=== PATIENT | female | born 1930 | race Hispanic/Latino ===

== ENCOUNTER 2019-01-26 20:44 | Observation (INO) | payer MEDICARE ==
--- NOTE | 2019-01-26 21:00 | Emergency Department Report ---
Blank Doc - Documentation Documentation: This is a 88-year-old female that presents with intermittent headaches and high blood pressure. This initial assessment/diagnostic orders/clinical plan/treatment(s) is/are subject to change based on patient's health status, clinical progression and re- assessment by fellow clinical providers in the ED. Further treatment and workup at subsequent clinical providers discretion. Patient/guardians urged not to elope from the ED as their condition may be serious if not clinically assessed and managed. Initial orders include: 1- Patient sent to [facility] for further evaluation and treatment 2- labs 3- UA
[2019-01-26 21:21] LABS: Basophils # (Auto) 0.1 K/mm3 (0.0-0.1); Basophils % (Auto) 1.5 % (0.0-1.8); Eosinophils # (Auto) 0.1 K/mm3 (0.0-0.4); Hematocrit 37.6 % (30.3-42.9); Hemoglobin 12.9 gm/dl (10.1-14.3); Lymphocytes # (Auto) 2.3 K/mm3 (1.2-5.4); Lymphocytes % (Auto) 27.4 % (13.4-35.0); Mean Corpuscular HGB Conc 34 % (30-34); Mean Corpuscular Volume 91 fl (79-97); Monocytes # (Auto) 0.8 K/mm3 (0.0-0.8); Monocytes % (Auto) 9.6 % (0.0-7.3); Platelet Count 256 K/mm3 (140-440); Red Blood Count 4.11 M/mm3 (3.65-5.03); Red Cell Distribution Width 13.9 % (13.2-15.2)
[2019-01-26 21:44] LABS: Alanine Aminotransferase 12 units/L (7-56); Albumin 3.9 g/dL (3.9-5); BUN/Creatinine Ratio 30; Blood Urea Nitrogen 21 mg/dL (7-17); Calcium 9.6 mg/dL (8.4-10.2); Hemolysis Index 14
[2019-01-26] MEDS ORDERED: K-DUR PO ONE (21:49)
--- NOTE | 2019-01-26 22:07 | Emergency Department Report ---
HPI - General Chief Complaint: High BP Time Seen by Provider: 01/26/19 20:59 - HPI HPI: 88-year-old female presents to the emergency department from home, brought in by a neighbor, with a complaint of feeling shaky and nervous earlier today. Patient also was found to have some elevated blood pressure. The neighbor told me that she was told by the patient that she felt like she might pass out, but she never did. The patient denies any chest pain, shortness of breath, vision change or any neurological deficits. She does have a mild heada shon to the top of her head that she says has been going on intermittently since she fell 3 months ago. The patient lives at home alone. Her primary care physician is a Dr. Sam. Patient takes chlorthalidone and Lopressor for her hypertension. She has a history of diabetes but is not on any medications. ED Past Medical Hx - Past Medical History Previous Medical History?: Yes Hx Hypertension: Yes Hx Diabetes: Yes Hx GERD: Yes - Surgical History Past Surgical History?: Yes Hx Cholecystectomy: Yes Additional Surgical History: gallbladder removal - Social History Smoking Status: Never Smoker Substance Use Type: None - Medications Home Medications: Home Medications Medication Instructions Recorded Confirmed Last Taken Type Metoprolol [Lopressor TAB] 100 mg PO DAILY 11/15/13 01/27/19 01/26/19 History Omeprazole [PriLOSEC] 20 mg PO DAILY 11/15/13 01/27/19 Unknown History Chlorthalidone 25 mg PO Q48H 01/27/19 01/27/19 01/26/19 History ED Review of Systems ROS: Stated complaint: ELEVATED BLOOD PRESSURE Other details as noted in HPI Comment: All other systems reviewed and negative Constitutional: denies: chills, fever Eyes: denies: eye pain, vision change ENT: denies: ear pain, throat pain Respiratory: denies: cough, shortness of breath Cardiovascular: denies: chest pain, palpitations Gastrointestinal: denies: abdominal pain, vomiting Genitourinary: denies: dysuria, frequency Musculoskeletal: denies: back pain, arthralgia Skin: denies: rash, lesions Neurological: headache, other (dizzy). denies: weakness, numbness, paresthesias Physical Exam - Physical Exam Vital Signs: Vital Signs 01/26/19 01/26/19 01/26/19 20:57 21:50 21:53 Temperature 97.4 F L Pulse Rate 64 62 Respiratory 18 17 18 Rate Blood Pressure 109/67 O2 Sat by Pulse 100 98 Oximetry Physical Exam: GENERAL: The patient is well-developed well-nourished. HENT: Normocephalic. Atraumatic. Patient has moist mucous membranes. EYES: Extraocular motions are intact. Pupils equal reactive to light víctor aterally. No nystagmus. NECK: Supple. Trachea is midline. CHEST/LUNGS: Clear to auscultation. There is no respiratory distress noted. HEART/CARDIOVASCULAR: Regular. There is no tachycardia. There is no murmur. ABDOMEN: Abdomen is soft, nontender. Patient has normal bowel sounds. There is no abdominal distention. SKIN: Skin is warm and dry. NEURO: The patient is awake, alert, and oriented. The patient is cooperative. The patient has no focal neurologic deficits. The patient has normal speech. Cranial nerves II through XII grossly intact. No pronator drift. No dysmetria. MUSCULOSKELETAL: There is no tenderness or deformity. There is no limitation range of motion. There is no evidence of acute injury. ED Course Vital Signs 01/26/19 01/26/19 01/26/19 20:57 21:50 21:53 Temperature 97.4 F L Pulse Rate 64 62 Respiratory 18 17 18 Rate Blood Pressure 109/67 O2 Sat by Pulse 100 98 Oximetry ED Medical Decision Making - Lab Data Result diagrams: 01/26/19 21:09 01/27/19 07:30 - EKG Data -: EKG Interpreted by Wy EKG shows normal: sinus rhythm, axis, intervals, QRS complexes, ST-T waves Rate: normal - EKG Data When compared to previous EKG there are: previous EKG unavailable Interpretation: normal EKG - Radiology Data Radiology results: report reviewed CT head/brain wo con INDICATION / CLINICAL INFORMATION: headache. TECHNIQUE: All CT scans at this location are performed using CT dose reduction for ALARA by means of automated exposure control. COMPARISON: None available. FINDINGS: Diffuse cerebral atrophy and small vessel disease is seen. No mass or mass effect is identified. There is no evidence of intracranial hemorrhage. No obvious area of infarction is identified. Visualized paranasal sinuses are clear. IMPRESSION: Cerebral atrophy and small vessel disease. No acute findings - Medical Decision Making This patient presents to the emergency department with the complaint of some nonspecific dizziness and elevated blood pressure. The patient's neighbor described it as something closer to near syncope. On examination, the patient does not have any focal, motor or sensory deficits in her cranial nerves are intact. A CT scan of the head was done that does not show any bleed, shift, mass, ischemia, or any other acute process. Patient's labs were mostly unremarkable except for some hyponatremia with a sodium of 129 and some very mild hypokalemia. The patient did have some elevated blood pressure but it came down to a more reasonable level prior to any antihypertensive medication necessary. However, when we attempted to ambulate the patient around the [facility], she immediately got very dizzy and felt off balance. For this reason, the patient will be admitted to the hospital for further evaluation and was accepted for admission by the hospitalist service. - Differential Diagnosis vertigo, TIA, posterior circulation stroke, dysrhythmia Critical Care Time: No Critical care attestation.: If time is entered above; I have spent that time in minutes in the direct care of this critically ill patient, excluding procedure time. ED Disposition Clinical Impression: Uncontrolled hypertension, Dizziness, Hyponatremia Disposition: 09 OP ADMIT IP TO THIS HOSP Is pt being admited?: Yes Condition: Fair Time of Disposition: 04:48 - Assessment Assessment Interval: Baseline - Level of Consciousness 1a. Level of Consciousness: alert/keenly responsive - LOC Questions 1b. LOC Questions: answers both correctly - LOC Command 1c. LOC Commands: performs tasks correctly - Best Gaze 2. Best Gaze: normal - Visual 3. Visual: no visual loss - Facial Palsy 4. Facial Palsy: normal symmetrical movement - Motor Arm 5a. Motor Arm Left: no drift 5b. Motor Arm Right: no drift - Motor Leg 6a. Motor Leg Left: no drift 6b. Motor Leg Right: no drift - Limb Ataxia 7. Limb Ataxia: absent - Sensory 8. Sensory: normal - Best Language 9. Best Language: no aphasia - Dysarthria 10. Dysarthria: normal - Extinction and Inattention 11. Extinction/Inattention: no abnormality - Scoring Total Score: 0 Stroke Severity: No Stroke Symptoms
--- NOTE | 2019-01-26 22:37 | Cat Scan Report ---
CT head/brain wo con INDICATION / CLINICAL INFORMATION: headache. TECHNIQUE: All CT scans at this location are performed using CT dose reduction for ALARA by means of automated e xposure control. COMPARISON: None available. FINDINGS: Diffuse cerebral atrophy and small vessel disease is seen. No mass or mass effect is identified. Ther e is no evidence of intracranial hemorrhage. No obvious area of infarction is identified. Visualized paranasal sinuses are clear. IMPRESSION: Cerebral atrophy and small vessel disease. No acute findings Signer Name: Jonas Almaguer MD FACR Signed: 01/26/2019 10:32 PM Workstation Name: [id number]
[2019-01-26] MEDS ORDERED: CATAPRES PO ONE (22:40)
[2019-01-26 23:01] LABS: Bilirubin,Urine NEG (Negative); Blood,Urine NEG (Negative); Color,Urine Yellow (Yellow); Mucus,Urine FEW /HPF; Protein,Urine <15 mg/dL mg/dL (Negative); Urobilinogen,Urine < 2.0 mg/dL (<2.0)
[2019-01-26] MEDS ORDERED: APRESOLINE IV ONE (23:52)
[2019-01-27] MEDS ORDERED: D50W (25GM) Syringe IV PRN (01:05)
[2019-01-27] MEDS ORDERED: TYLENOL PO PRN (01:08)
[2019-01-27] MEDS ORDERED: ZOFRAN IV PRN (01:08)
[2019-01-27] MEDS ORDERED: NACL 0.9% 1000 ML 1,000 ML IV SCH (02:00)
[2019-01-27 06:28] LABS: Creatine Kinase MB 2.4 ng/mL (0.0-4.0)
[2019-01-27] MEDS: HumuLIN R SUB-Q SCH ×3 (07:38→17:16)
--- NOTE | 2019-01-27 07:38 | History and Physical Report ---
CHIEF COMPLAINT: Dizziness. HISTORY OF PRESENT ILLNESS: The patient is an 88-year-old female who was brought in by a neighbor because of feeling of dizziness whenever she stands off. The patient says she has been feeling shaky and nervous all day yesterday. There was no history of chest pain, no history of shortness of breath, nausea, vomiting or diarrhea. There was also no history of fever or chills and the patient said she has some mild headache and was found to have elevated blood pressure in the Emergency Room. PAST MEDICAL HISTORY: Pertinent for hypertension, diabetes mellitus, gastroesophageal reflux disease. PAST SURGICAL HISTORY: Pertinent for cholecystectomy. FAMILY HISTORY: Reviewed and noncontributory. SOCIAL HISTORY: The patient lives alone, does not smoke, does not drink alcohol and does not use illicit drug. MEDICATIONS: The patient is on enteric-coated aspirin 81 mg daily, calcium carbonate 1 by mouth daily, clorazepate 3.75 mg by mouth daily, Lasix 20 mg daily, metoprolol or Lopressor 25 mg by mouth twice daily, Prilosec 10 mg by mouth daily, pravastatin 10 mg by mouth at bedtime, amlodipine 5 mg at bedtime, glipizide 2.5 mg by mouth daily. ALLERGIES: THE PATIENT IS ALLERGIC TO PENICILLIN. REVIEW OF SYSTEMS: CONSTITUTIONAL: There is no fever, no chills, no diaphoresis. HEENT: There is headache, but no sore throat. CARDIOVASCULAR SYSTEM: There is no chest pain or orthopnea. RESPIRATORY SYSTEM: There is no shortness of breath or cough. GASTROINTESTINAL SYSTEM: There is no nausea, no vomiting, no abdominal pain, diarrhea or constipation. NEUROLOGICAL SYSTEM: There is no numbness. There is dizziness, but no altered mental status. MUSCULOSKELETAL SYSTEM: There is no joint pain or swelling. DERMATOLOGICAL SYSTEM: There is no skin rash or itching. GENITOURINARY SYSTEM: There is no dysuria, hematuria, or flank pain. Rest of system review is normal. PHYSICAL EXAMINATION: GENERAL: At the time of exam, the patient was found to be alert, oriented x 3 and not in acute distress. VITAL SIGNS: At initial time of presentation show temperature of 97.4 degrees Fahrenheit, pulse of 64, respirations 18, blood pressure 109/67, O2 sat of 100% on room air. Blood pressure later on went up to as high as 185/73. HEENT: Showed pupils to be equal, round, reactive to light and accommodating. Extraocular muscles are intact. NECK: Supple with no JVD or carotid bruit. CARDIOVASCULAR SYSTEM: Showed normal first and second heart sounds with no gallops or murmurs. RESPIRATORY SYSTEM: Showed good air entry on both sides of the lungs. GASTROINTESTINAL SYSTEM: Show abdomen to be full, soft, nontender with no organomegaly or rigidity. NEUROLOGICAL: Shows no focal deficit. MUSCULOSKELETAL SYSTEM: Show no joint swelling or tenderness. DERMATOLOGICAL SYSTEM: Show no skin rash. GENITOURINARY SYSTEM: Shows no costovertebral angle tenderness. PERTINENT LABORATORY AND IMAGING STUDIES: The patient has CT of the head without contrast done that shows cerebral atrophy and small vessel disease with no acute findings. The patient's lab result shows CBC with normal white count, normal hemoglobin and normal hematocrit with CBC differential showing a slight increase in monocyte count of 9.6. The patient's chemistry showed low sodium level of 129 with low potassium level of 3.4, and low chloride level of 91.8 and elevated BUN of 21 with normal creatinine and normal GFR of greater than 60. Rest of the patient's chemistry was unremarkable. Cardiac enzymes came back unremarkable. The patient's TSH level was high with a value of 8.94 with normal free T4. The patient's urinalysis came back unremarkable. DIAGNOSES: 1. Dizziness. 2. Hyponatremia. 3. Hypertension. 4. Subclinical hypothyroidism. PLAN OF CARE: 1. The patient will be placed on observation on telemetry. 2. The patient will have cardiac enzymes done serially and involve troponin, total CK, and CK-MB every 6 hours x 2 more levels. 3. The patient will have basic metabolic panel done this morning. 4. The patient will be on the following medications: Tylenol 650 mg by mouth every 4 hours for fever and headache and Zofran 4 mg IV every 8 hours as needed for nausea and vomiting. 5. The patient will have IV potassium chloride or K-Bob which will be 10 mEq in 100 mL of normal saline given over 1 hour x 3 doses. 6. The patient will be on her home medication as shown in the medication reconciliation section. 7. The patient will be on Accu-Chek before meals and at bedtime followed by low-dose sliding scale using regular insulin coverage. 8. The patient's DVT prophylaxis will be through sequential compressive device. [facility]# [id number] OCN/MARAL
[2019-01-27 08:41] LABS: BUN/Creatinine Ratio 30; Blood Urea Nitrogen 18 mg/dL (7-17); Hemolysis Index 10
[2019-01-27] MEDS ORDERED: KCL 10MEQ/100ML 10 MEQ/100 ML BAG IV ONE (09:00)
[2019-01-27] MEDS ORDERED: LOPRESSOR PO SCH (10:00)
[2019-01-27] MEDS ORDERED: LOVENOX SUB-Q SCH (10:00)
[2019-01-27] MEDS ORDERED: PROTONIX PO SCH (10:00)
[2019-01-27] MEDS ORDERED: TRANXENE PO SCH (10:00)
[2019-01-27] MEDS ORDERED: NORVASC PO SCH (10:00)
[2019-01-27] MEDS ORDERED: NON-FORMULARY (Calcium Carbonate/Vitamin D3 [Calcium 600-Vit D3 400 Tablet] 1 EACH) PO SCH (10:00)
[2019-01-27] MEDS ORDERED: HALFPRIN EC PO SCH (10:00)
[2019-01-27] MEDS ORDERED: OYSCO D 500 MG-200 UNIT PO SCH (10:00)
[2019-01-27] MEDS ORDERED: OMEPRAZOLE 10 MG PO SCH (10:00)
--- NOTE | 2019-01-27 10:18 | Consultation ---
History of Present Illness Consult date: 01/27/19 Requesting physician: AGUILA STREET Consult reason: known to you History of present illness: The pt is an 88 YO female with a past medical history of HTN, HLP, DM, anxiety, depression. She is followed in our office by Dr. Sam. She presented for evaluation of elevated BPs. She states she was in her PCP's office yesterday when her BP was noted to be elevated and thus she was referred to [facility] for further eval/management. She denies any cardiac complaints, including chest pain, palpitations, n/v, diaphoresis, dizziness or syncope. On evaluation, she is dressed and states she is feeling well and wishes to be discharged home today. Echo done 06/2013 showed EF 55%, mild LVH, impaired relaxation, mild MR, mild TR. Past History Past Medical History: diabetes, hypertension, hyperlipidemia, other (anxiety, depression) Social history: denies: smoking, alcohol abuse, prescription drug abuse Medications and Allergies Allergies Allergy/AdvReac Type Severity Reaction Status Date / Time Penicillins Allergy Rash Verified 11/14/13 23:03 Home Medications Medication Instructions Recorded Confirmed Last Taken Type Metoprolol [Lopressor TAB] 100 mg PO DAILY 11/15/13 01/27/19 01/26/19 History Omeprazole [PriLOSEC] 20 mg PO DAILY 11/15/13 01/27/19 Unknown History Chlorthalidone 25 mg PO Q48H 01/27/19 01/27/19 01/26/19 History Active Meds: Active Medications Acetaminophen (Tylenol) 650 mg PO Q4H PRN PRN Reason: Fever >101 Amlodipine Besylate (Norvasc) 5 mg PO DAILY [facility] Aspirin (Halfprin Ec) 81 mg PO DAILY [facility] Calcium/Vitamin D ([place] D 500 Mg-200 Unit) 1 each PO DAILY [facility] Clorazepate Dipotassium (Tranxene) 3.75 mg PO DAILY [facility] Dextrose (D50w (25gm) Syringe) 50 ml IV PRN PRN PRN Reason: Hypoglycemia Enoxaparin Sodium (Lovenox) 40 mg SUB-Q QDAY MARK Sodium Chloride (Nacl 0.9% 1000 Ml) 1,000 mls @ 75 mls/hr IV DIRECT MARK Last Admin: 01/27/19 06:55 Dose: 75 mls/hr Documented by: Insulin Human Regular (Humulin R) 0 units SUB-Q [facility]; Protocol Last Admin: 01/27/19 07:38 Dose: Not Given Documented by: Insulin Human Regular (Humulin R) 0 units SUB-Q QHS [facility]; Protocol Metoprolol Tartrate (Lopressor) 25 mg PO BID [facility] Ondansetron HCl (Zofran) 4 mg IV Q8H PRN PRN Reason: Nausea And Vomiting Pantoprazole Sodium (Protonix) 20 mg PO QDAY [facility] Pravastatin Sodium (Pravachol) 10 mg PO QHS [facility] Review of Systems Constitutional: no fever, no chills, no sweats Ears, nose, mouth and throat: no ear pain, no nose pain, no sinus pressure, no sinus pain Cardiovascular: high blood pressure, no chest pain, no orthopnea, no palpitations, no rapid/irregular heart beat, no edema, no syncope, no lightheadedness, no shortness of breath, no dyspnea on exertion Respiratory: no cough, no shortness of breath, no dyspnea on exertion, no congestion, no wheezing, no pain on inspiration Gastrointestinal: no abdominal pain, no nausea, no vomiting, no diarrhea, no constipation, no change in bowel habits Genitourinary Female: no pelvic pain, no flank pain, no dysuria, no urinary frequency, no urgency Musculoskeletal: no neck stiffness, no neck pain, no shooting arm pain, no arm numbness/tingling, no low back pain, no shooting leg pain Integumentary: no rash, no pruritis, no redness, no sores, no wounds Neurological: no head injury, no paralysis, no weakness, no parathesias, no numbness, no tingling, no seizures Psychiatric: anxiety, depression Endocrine: no cold intolerance, no heat intolerance Hematologic/Lymphatic: no easy bruising, no easy bleeding Allergic/Immunologic: no urticaria, no wheezing Physical Examination Vital Signs Temp Pulse Resp BP Pulse Ox 97.4 F L 64 18 109/67 100 01/26/19 20:57 01/26/19 20:57 01/26/19 20:57 01/26/19 20:57 01/26/19 20:57 General appearance: no acute distress HEENT: Positive: PERRL, Normocephaly, Mucus Membranes Moist Neck: Positive: neck supple, trachea midline Cardiac: Positive: Reg Rate and Rhythm, S1/S2 Lungs: Positive: clear to auscultation Neuro: Positive: Grossly Intact Abdomen: Positive: Soft. Negative: Tender Skin: Negative: Rash Musculoskeletal: No Pain Extremities: Absent: edema Results 01/26/19 21:09 01/27/19 07:30 Cardiac Enzymes 01/26/19 01/27/19 Range/Units 21:09 05:51 AST 19 (5-40) units/L CK-MB (CK-2) 2.4 (0.0-4.0) ng/mL CBC 01/26/19 Range/Units 21:09 WBC 8.5 (4.5-11.0) K/mm3 RBC 4.11 (3.65-5.03) M/mm3 Hgb 12.9 (10.1-14.3) gm/dl Hct 37.6 (30.3-42.9) % Plt Count 256 (140-440) K/mm3 Lymph # 2.3 (1.2-5.4) K/mm3 [place] # 0.8 (0.0-0.8) K/mm3 Eos # 0.1 (0.0-0.4) K/mm3 Baso # 0.1 (0.0-0.1) K/mm3 Comprehensive Metabolic Panel 01/26/19 01/27/19 Range/Units 21:09 07:30 Sodium 129 L 136 L D (137-145) mmol/L Potassium 3.4 L 3.9 (3.6-5.0) mmol/L Chloride 91.8 L 96.4 L (98-107) mmol/L Carbon Dioxide 24 29 (22-30) mmol/L BUN 21 H 18 H (7-17) mg/dL Creatinine 0.7 0.6 L (0.7-1.2) mg/dL Glucose 102 H 108 H (65-100) mg/dL Calcium 9.6 10.0 (8.4-10.2) mg/dL AST 19 (5-40) units/L ALT 12 (7-56) units/L Alkaline Phosphatase 102 (35-129) units/L Total Protein 7.4 (6.3-8.2) g/dL Albumin 3.9 (3.9-5) g/dL - Imaging and Cardiology Echo: report reviewed (06/2013 showed EF 55%, mild LVH, impaired relaxation, mild MR, mild TR. ) EKG: report reviewed, image reviewed EKG interpretations - Telemetry EKG Rhythm: Sinus Rhythm - EKG Sinus rhythms and dysrhythmias: sinus rhythm Assessment and Plan Currently stable cardiac status. BPs improving. Pt may discharge home from cardiology standpoint. Recommend follow up in our office with Dr. Sam within 1-2 weeks of hospital discharge ([phone]). The patient has been seen in conjunction with Dr. Chika Parson who agrees with the assessment and plan of care. - Patient Problems (1) Accelerated hypertension Current Visit: Yes Status: Acute (2) Hyperlipidemia Current Visit: Yes Status: Chronic (3) Diabetes Current Visit: Yes Status: Chronic (4) Anxiety Current Visit: Yes Status: Chronic
[2019-01-27 13:47] LABS: Creatine Kinase MB 2.6 ng/mL (0.0-4.0)
--- NOTE | 2019-01-27 15:32 | Discharge Summary ---
Providers - Providers Date of Admission: 01/27/19 01:01 Date of discharge: 01/27/19 Attending physician: AGUILA STREET 01/27/19 08:58 Physical Therapy Evaluation and Treat [CONS] Routine Comment: Reason For Exam: Weakness Primary care physician: KIANNA SAM Hospitalization Condition: Fair Disposition: DC-01 TO HOME OR SELFCARE Core Measure Documentation - Palliative Care Palliative Care/ Comfort Measures: Not Applicable - Core Measures Any of the following diagnoses?: none Exam - Constitutional Vitals: Temp Pulse Resp BP Pulse Ox 98.0 F 70 20 148/57 93 01/27/19 07:16 01/27/19 10:47 01/27/19 10:00 01/27/19 10:47 01/27/19 10:00 Plan Activity: no restrictions Diet: low fat, low cholesterol, low salt, diabetic Additional Instructions: 1. Follow up with PCP in 1 week. 2.Follow up with Dr. Sam in 1 -2 weeks Follow up with: KIANNA SAM MD [Primary Care Provider] - 7 Days Prescriptions: Aspirin EC 81 mg PO DAILY #30 tablet Metoprolol [Lopressor TAB] 25 mg PO BID #60 tablet amLODIPine [Norvasc] 5 mg PO DAILY #30 tablet
[2019-01-27 16:19] VITALS: BP 141/66
[2019-01-27] MEDS ORDERED: NON-FORMULARY (Pravastatin Sodium [Pravastatin] 10 MG) PO SCH (22:00)
[2019-01-27] MEDS ORDERED: HumuLIN R SUB-Q SCH (22:00)
[2019-01-27] MEDS ORDERED: PRAVACHOL PO SCH (22:00)
== END 2019-01-27 17:45 | disposition home or self-care (01) ==
LOC: ED 20:44 → 2B-ACE 01-27 01:01
PROVIDERS: ADMIT Internal Medicine; ATTEND Internal Medicine
DX: R42 Dizziness and giddiness (principal); E87.1 Hypo-osmolality and hyponatremia; I10 Essential (primary) hypertension; E78.5 Hyperlipidemia, unspecified; E02 Subclinical iodine-deficiency hypothyroidism; K21.9 Gastro-esophageal reflux disease without esophagitis; F41.9 Anxiety disorder, unspecified; F32.9 Major depressive disorder, single episode, unspecified; Z90.49 Acquired absence of other specified parts of digestive tract; Z79.899 Other long term (current) drug therapy; Z88.0 Allergy status to penicillin
CPT/HCPCS: 36415; 70450; 80048; 80053; 81001; 82550; 82553; 82962; 84439; 84443; 84484; 85025; 87086; 93005; 93010; 96360; 96361; 96372; 97162; 99284; G0378; J1650; J3480; J7030; A9270-GY